=== PATIENT | male | born 1980 | race Two or more races ===

== ENCOUNTER 2023-08-16 05:55 | Day surgery (SDC) | payer MEDICAID ==
[2023-08-10 13:31] LABS: Basophils # (auto) 0.1 10 ^3/uL (0-0.2); Basophils % (auto) 0.6 % (0.0-2.0); Eosinophils # (auto) 0.2 10 ^3/uL (0-0.8); Eosinophils % (auto) 2.3 % (0.0-7.0); Hemoglobin 16.7 g/dL (13.5-17.5); Lymphocytes # (auto) 2.8 10 ^3/uL (0.4-5.4); Lymphocytes % (auto) 31.5 % (10.0-50.0); Mean Corpuscular Hemoglobin 27.5 pg (28.0-32.0); Mean Corpuscular Volume 80.8 fL (80.0-100.0); Monocytes # (auto) 0.7 10 ^3/uL (0-1.3); Monocytes % (auto) 7.8 % (0.0-12.0); Neutrophils # (auto) 5.2 10 ^3/uL (1.6-8.6); Neutrophils % (auto) 57.8 % (37.0-80.0); Nucleated Red Blood Cells % 0.2 %; Red Blood Cells 6.07 10^6/uL (4.5-5.90); Red Cell Distribution Width 14.3 % (11.8-14.3); Urine Bacteria NONE SEEN /hpf (None Seen); Urine Blood Negative /uL (Negative); Urine Clarity Clear (Clear); Urine Color Yellow (Yellow); Urine Mucus FEW (None Seen); Urine Protein, UAD Negative (Negative); Urine Specific Gravity 1.024 (1.001-1.035); Urine WBC <1 /hpf (0 - 3)
[2023-08-10 13:41] LABS: INR 1.01 (0.9-1.15); Partial Thromboplastin Time 30.5 SEC (24.5-34.5); Prothrombin Time 10.6 sec (9.3-11.8)
[2023-08-10 13:50] LABS: Alanine Aminotransferase 39 U/L (7-40); Albumin 4.8 g/dL (3.2-4.8); Alkaline Phosphatase 89 U/L (46-116); Anion Gap 5 (5-15); Aspartate Aminotransferase 22 U/L (13-40); BUN/Creatinine Ratio 14.9 (10.0-20.0); Bilirubin, Total 0.7 mg/dL (0.2-1.0); Blood Urea Nitrogen 13 mg/dL (9-23); Carbon Dioxide 29 mmol/L (20-30); Chloride 104 mmol/L (98-107); Glucose 90 mg/dL (74-106); Potassium 4.3 mmol/L (3.5-5.1); Sodium 138 mmol/L (136-145); Total Protein 7.2 g/dL (5.7-8.2)
[~2023-08-16] VITALS: Ht 180.3 cm; Wt 86.2 kg
[~2023-08-16 05:55] MED LIST: IBUP200T76 PO
[2023-08-16] MEDS ORDERED: fentaNYL CITRATE 100 MCG/2 ML VL ONE (07:01)
[2023-08-16] MEDS ORDERED: PROPOFOL 10 MG/ML 20 ML IV ONE (07:03)
[2023-08-16] MEDS ORDERED: ONDANSETRON HCL 4 MG/2 ML VIAL ONE (08:01)
[2023-08-16] MEDS ORDERED: DexAMETHasone SOD PHOS 10MG/1ML VIAL INJ ONE (08:01)
[2023-08-16] MEDS: LIDOCAINE W/ EPINEPHRINE 1% 20ML VIAL ONE (08:12)
[2023-08-16] MEDS: BACITRACIN TOP OINT 1 UD PKG TOP ONE (08:12)
[2023-08-16 08:19] VITALS: TEMP 97.6; O2SAT 96
[2023-08-16] MEDS ORDERED: HYDROmorphone HCL 2 MG/ML VL/or syr IV PRN (08:45)
[2023-08-16] MEDS ORDERED: MEPERIDINE HCL (25 MG/ML) 1ML VIAL IV PRN (08:45)
[2023-08-16] MEDS ORDERED: ONDANSETRON HCL 4 MG/2 ML VIAL IV PRN (08:45)
[2023-08-16 09:17] VITALS: BP 114/80; PULSE 90; RESP 15; O2SAT 98
== END 2023-08-16 09:26 | disposition home or self-care (01) ==
LOC: SUR 05:55
PROVIDERS: ATTEND Urology
DX: Z30.2 Encounter for sterilization (principal); G43.909 Migraine, unspecified, not intractable, without status migrainosus; Z90.49 Acquired absence of other specified parts of digestive tract; Z98.890 Other specified postprocedural states
CPT/HCPCS: 36415; 55250; 80053; 81001; 85025; 85610; 85730; 87086; 88305; J1100; J2405; J2704; J3010